=== PATIENT | female | born 1990 | race Caucasian/White ===

== ENCOUNTER 2021-06-11 16:18 | Emergency (ER) | payer MEDICAID ==
[~2021-06-11] VITALS: Ht 160 cm; Wt 81.6 kg
[2021-06-11 16:59] LABS: BASOPHILS % (AUTO) 0.5 % (0.0-2.0); EOSINOPHILS % (AUTO) 0.8 % (0.0-6.0); HEMATOCRIT 42 % (33-45); HEMOGLOBIN 14.2 g/dL (11.5-14.8); LYMPHOCYTES # (AUTO) 2.2 K/uL (0.8-4.8); LYMPHOCYTES % (AUTO) 29.5 % (20.0-44.0); MEAN CORPUSCULAR HGB CONC 34 g/dl (31.0-36.0); MEAN CORPUSCULAR VOLUME 84 fL (82-100); MONOCYTES # (AUTO) 0.5 K/uL (0.1-1.30); MONOCYTES % (AUTO) 6.2 % (2.0-12.0); NEUTROPHILS # (AUTO) 4.7 K/uL (1.8-8.9); PLATELET COUNT (AUTO) 255 K/uL (150-450); WHITE BLOOD COUNT (AUTO) 7.5 K/uL (4.3-11.0)
[2021-06-11 17:14] LABS: ALBUMIN 4.4 g/dL (3.4-5.0); BILIRUBIN,DIRECT 0.1 mg/dL (0.0-0.2); BILIRUBIN,TOTAL 0.5 mg/dL (0.2-1.0); CALCIUM, SERUM 9.1 mg/dL (8.5-10.1); CREATININE 0.8 mg/dL (0.6-1.3); POTASSIUM 3.7 mmol/L (3.5-5.1); TOTAL PROTEIN, SERUM 8.8 g/dL (6.4-8.2)
[2021-06-11 17:16] LABS: BILIRUBIN,URINE NEGATIVE (NEGATIVE); COLOR,URINE YELLOW (YELLOW); LEUKOCYTE ESTERASE ,URINE LARGE (NEGATIVE); NITRITE, URINE NEGATIVE (NEGATIVE); PH,URINE 7.5 (5.0-8.0); PROTEIN,URINE NEGATIVE (NEGATIVE); UGLUCOSE NEGATIVE (NEGATIVE); UROBILINOGEN,URINE 0.2 EU/dL (0.2)
[2021-06-11 17:33] LABS: BACTERIA,URINE 1+ /HPF (None Seen); SQUAMOUS EPITHELIAL CELL,UR Few /HPF (None Seen)
[2021-06-11] MEDS ORDERED: HYDROCODONE/APAP 5/325MG TABLET PO ONE (18:00)
[2021-06-11] MEDS ORDERED: HYDROCODONE/APAP 5/325MG TABLET ONE (18:01)
--- NOTE | 2021-06-11 19:05 | NUR ---
assumed care of pt. Bibself c/o lower abd pain withi nausea x1 week. Pt aaox4 breathing evenly and unlabored. Pt attached to monitor and pox. Pt given blanket and call light within reach
[2021-06-11] MEDS ORDERED: CEPH500C2 PO (19:49)
[2021-06-11] MEDS ORDERED: PHEN-705 PO (19:51)
[2021-06-11] MEDS ORDERED: IBUP-1953 PO (19:53)
--- NOTE | 2021-06-11 19:58 | NUR ---
Patient discharged to home in stable condition. Written and verbal after care instructions given. Patient verbalizes understanding of instruction. PT ambulatory with a steady gait. Pt picked up by family
[2021-06-11 20:08] VITALS: BP 122/84
== END 2021-06-11 19:58 | disposition home or self-care (01) ==
LOC: ER 16:24
DX: N30.00 Acute cystitis without hematuria (principal); E03.9 Hypothyroidism, unspecified
CPT/HCPCS: 36415; 76856-TC; 80048-TC; 80076-TC; 81001; 83690-TC; 84703-TC; 85025-TC; 87086-TC